=== PATIENT | female | born 1980 | race Caucasian/White ===

== ENCOUNTER → 2016-12-28 | Outpatient (CLI) | payer BC ==
--- NOTE | 2016-12-28 10:54 | DIAGNOSTIC IMAGING REPORT ---
CHEST 2 VIEWS ROUTINE CLINICAL HISTORY: IRITIS OF BOTH EYES 364.3 H20.9 dyspnea. Infection. COMPARISON STUDY: No previous studies for comparison. FINDINGS: The bones soft tissues and hemidiaphragms are normal. The cardiomediastinal silhouette is normal. The lungs are clear. The pulmonary vasculature is normal. IMPRESSION: Negative chest. The above report was generated using voice recognition software. It may contain grammatical, syntax or spelling errors. Electronically signed by: Jhony Estrada M.D. 12/28/2016 10:53 AM Dictated Date/Time: 12/28/2016 10:53 AM
[2016-12-28 11:57] LABS: BASO % 0.3 %; BASO ABS # 0.02 K/uL (0-0.2); COMPLETE YES; EOS % 4.7 %; HEMATOCRIT 42.1 % (37-47); LYMPH % 25.2 %; LYMPH ABS # 1.49 K/uL (1.2-3.4); MEAN CELL VOLUME 88.6 fL (80-100); MEAN CORPUSCULAR HEMOGLOBIN 28.8 pg (25-34); MEAN CORPUSCULAR HGB CONC 32.5 g/dl (32-36); MEAN PLATELET VOLUME 9.7 fL (7.4-10.4); MONO % 5.8 %; PLATELET COUNT 222 K/uL (130-400); RED BLOOD COUNT 4.75 M/uL (4.2-5.4); WHITE BLOOD COUNT 5.91 K/uL (4.8-10.8)
[2016-12-28 12:07] LABS: URINE APPEARANCE CLEAR (CLEAR); URINE BILIRUBIN NEG (NEG); URINE COLOR YELLOW; URINE EPITHELIAL CELL AUTO >30 /lpf (0-5); URINE NITRITE NEG (NEG); URINE SPECIFIC GRAVITY 1.019 (1.000-1.030); UROBILINOGEN NEG (NEG); ZZUR CULT IF INDIC CLEAN CATCH NO
[2016-12-28 12:09] LABS: MANUAL MICROSCOPIC REQUIRED? NO; REVIEW REQ? NO
[2016-12-28 12:21] LABS: ALT/SGPT 21 U/L (12-78); BLOOD UREA NITROGEN 15 mg/dl (7-18); BUN/CREATININE RATIO 24.8 (10-20); C-REACTIVE PROTEIN < 0.29 mg/dl (0-0.29); CALCIUM 9.5 mg/dl (8.5-10.1); CARBON DIOXIDE 29 mmol/L (21-32); CHLORIDE 105 mmol/L (98-107); CREATININE 0.61 mg/dl (0.60-1.20); GLUCOSE 89 mg/dl (70-99); POTASSIUM 4.1 mmol/L (3.5-5.1); SODIUM 138 mmol/L (136-145)
[2016-12-28 12:32] LABS: ALKALINE PHOSPHATASE 76 U/L (45-117); AST/SGOT 16 U/L (15-37); RHEUMATOID FACTOR < 10.0 U/mL (0-15)
[2016-12-28 12:52] LABS: LYME DISEASE AB IGG NEG (NEG); LYME DISEASE AB IGM NEG (NEG)
[2016-12-28 23:33] LABS: RAPID PLASMA REAGIN NONREACTIVE (NONREACT)
[2017-01-01 15:39] LABS: QUANTIF TB AG-NIL 0.01 IU/ML; QUANTIFERON NIL 0.02 IU/ML
[2017-01-03 21:38] LABS: COXSACKIE B1 1:16 (<1:8); CYTOMEGALOVIRUS IGG AB <0.60 U/ML; HLA-B27** TC 528X NEGATIVE (NEGATIVE); PARVOVIRUS IgG INDEX 6.7 (<0.9); PARVOVIRUS IgM INDEX 0.1 (<0.9)
== END | disposition home or self-care (01) ==
LOC: C.RAD 10:12
PROVIDERS: ATTEND Nurse Practitioner Family
DX: H20.9 Unspecified iridocyclitis (principal)